=== PATIENT | female | born 1950 | race Caucasian/White ===

== ENCOUNTER 2017-12-01 22:22 | Emergency (ER) | payer OTHER ==
[2017-12-01 22:43] VITALS: O2SAT 99
--- NOTE | 2017-12-01 23:50 | ED PDOC ---
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 Patient reports he tripped on uneven pavement while walking. She indicates her left hand broke the fall but states there was swelling and pain the left wrist after and nasal abrasions. Patient took tylenol [employer]. Denies head injury. PCP: none provided Past Medical History Reviewed: Historical Data, Nursing Documentation, Vital Signs Vital Signs: Last Vital Signs Temp 98.1 F 12/01/17 22:39 Pulse 78 12/01/17 22:39 Resp 18 12/01/17 22:39 BP 142/76 12/01/17 22:39 Pulse Ox 99 12/01/17 22:39 - Medical History PMH: HTN, Hypothyroidism - Surgical History Surgical History: No Surg Hx - Family History Family History: States: Unknown Family Hx - Social History Current smoker - smoking cessation education provided: No Alcohol: None Drugs: Denies - Home Medications Home Medications: Ambulatory Orders Medication Instructions Recorded traMADol [Ultram] 50 mg PO TID #12 tab 12/01/17 - Allergies Allergies/Adverse Reactions: Allergies Allergy/AdvReac Type Severity Reaction Status Date / Time No Known Allergies Allergy Verified 12/01/17 22:43 Review of Systems ROS Statement: Except As Marked, All Systems Reviewed And Found Negative Musculoskeletal: Positive for: Other (left wrist pain and swelling) Physical Exam - Reviewed Nursing Documentation Reviewed: Yes Vital Signs Reviewed: Yes - Physical Exam Appears: Positive for: Non-toxic, No Acute Distress Head Exam: Positive for: ATRAUMATIC, NORMOCEPHALIC. Negative for: NORMAL INSPECTION (Abrasion to forehead) Skin: Positive for: Normal Color, Warm, Dry Eye Exam: Positive for: Normal appearance ENT: Positive for: Other (Abrasion to nose) Neck: Positive for: Normal, Painless ROM Cardiovascular/Chest: Positive for: Regular Rate, Rhythm. Negative for: Murmur Respiratory: Positive for: Normal Breath Sounds. Negative for: Wheezing, Respiratory Distress Pulses-Radial (L): 2+ Extremity: Positive for: Normal ROM, Capillary Refill (less than 2 seconds), Other (Left wrist focal tenderness and swelling to radial surface) Comments: Patient unable to clench fist due to pain. - ECG O2 Sat by Pulse Oximetry: 99 (RA) Pulse Ox Interpretation: Normal Medical Decision Making Medical Decision Making: Initial Impression: Left wrist pain due to fall Initial Plan: X-ray left wrist Patient was showed the distal radial fracture. Patient reports she is returning to [place] tomorrow and will follow up with an orthopedist there. Splint was applied and sling was given and patient was provided with imaging. Patient is stable for discharge and diagnosed with left wrist Scribe Attestation: Documented by Amadeo Tobar acting as a scribe for Dmitriy Coto MD. Provider Scribe Attestation: All medical record entries made by the Scribe were at my direction and personally dictated by me. I have reviewed the chart and agree that the record accurately reflects my personal performance of the history, physical exam, medical decision making, and the department course for this patient. I have also personally directed, reviewed, and agree with the discharge instructions and disposition. Disposition - Clinical Impression Clinical Impression: Fracture of wrist - Disposition Disposition: Routine/Home Disposition Time: 23:00 Condition: STABLE Prescriptions: traMADol [Ultram] 50 mg PO TID #12 tab Instructions: Wrist Fracture (DC) Forms: [employer] (Chinese)
[2017-12-02 00:32] VITALS: BP 138/82; PULSE 77; RESP 17; TEMP 98
--- NOTE | 2017-12-02 10:20 | RAD ---
PROCEDURE: Left Wrist Radiographs. HISTORY: pain COMPARISON: None. FINDINGS: BONES: Comminuted distal radial metaphyseal fracture with dorsal angulation. JOINTS: Unremarkable. SOFT TISSUES: Circumferential wrist soft tissue swelling. OTHER FINDINGS: None. IMPRESSION: Comminuted, distal radial metaphyseal fracture with dorsal angulation.
== END 2017-12-01 23:38 | disposition home or self-care (01) ==
LOC: H.ER 22:22
DX: S62.92XA Unspecified fracture of left hand, initial encounter for closed fracture (principal); W19.XXXA Unspecified fall, initial encounter; Y92.480 Sidewalk as the place of occurrence of the external cause; E03.9 Hypothyroidism, unspecified; I10 Essential (primary) hypertension